=== PATIENT | female | born 1940 | race Caucasian/White ===

== ENCOUNTER 2020-04-07 16:27 | Inpatient (IN) | payer MEDICARE, MEDICAID, SELFPAY ==
[2020-04-07] VITALS (9 sets, daily range): BP systolic 109–170; BP diastolic 71–92; PULSE 85–110; RESP 14–33; TEMP 35.9–36.8; O2SAT 88–100; BMI 26.6
--- NOTE | 2020-04-07 17:27 | XRR_ITS ---
PROCEDURE INFORMATION: Exam: XR Chest, 1 View Exam date and time: 04/07/2020 5:44 PM Age: 80 years old Clinical indication: Dyspnea; Additional info: SOB TECHNIQUE: Imaging protocol: XR of the chest Views: 1 view. COMPARISON: CR Chest 1 [place] [id number] 04/15/2016 4:32 PM FINDINGS: Lungs: A somewhat lobulated approximately 3.1 cm right infrahilar masslike density. Right basilar atelectasis. Left lung is clear aside from mildly prominent interstitial markings. Pleural spaces: Moderate right pleural effusion. No pneumothorax. Heart/Mediastinum: Mild enlargement of the cardiac shadow. Bones/joints: No acute abnormality. XR/XR chest 1V portable [id number] IMPRESSION: 1. A somewhat lobulated approximately 3.1 cm right infrahilar density is new compared to the prior exam and is suspicious for mass. Recommend contrast-enhanced CT of the chest. 2. Moderate right pleural effusion and associated atelectasis.
--- NOTE | 2020-04-07 17:29 | ECG_ITS ---
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 Measurements Intervals [place] Rate: 103 P: [place]: QRS: -25 QRSD: 105 T: 33 QT: 359 QTc: 470 Interpretive Statements ATRIAL FIBRILLATION WITH RAPID VENTRICULAR RESPONSE WITH ABERRANT CONDUCTION OR VENTRICULAR PREMATURE COMPLEXES INCOMPLETE RIGHT BUNDLE BRANCH BLOCK [90+ ms QRS DURATION, TERMINAL R IN V1/V2, 40+ ms S IN I/aVL/V4/V5/V6] SEPTAL MYOCARDIAL INFARCTION , OF INDETERMINATE AGE [40+ ms Q WAVE IN V1/V2] Compared to ECG 04/15/2016 16:49:34 Ventricular premature complex(es) now present Aberrant conduction of supraventricular beat(s) now present Incomplete right bundle-branch block now present Myocardial infarct finding now present Sinus rhythm no longer present Left-axis deviation no longer present Electronically Signed On 04-08-2020 16:06:09 VALIDATION SCIENTIST by Alex Arguelles M.D. [id number]
[2020-04-07] MEDS: albuterol 8 gm MDI 4 PUFF INHALATION (18:04)
[2020-04-07 18:07] LABS: ABG PCO2 52.2 mmHg (35-45); ABG PH Result 7.43 (7.35-7.45); Arterial Blood Gas Hematocrit 28.2 % (37-47); Base Excess ABG 9.1 mmol/L (-2.0-2.0); Blood Gas Allen Test Pos; Blood Gas Sample Type Arterial; HCO3 ABG 34.7 mmol/L (22-26)
[2020-04-07 18:08] LABS: Blood Gas Sample Site Radial, right; Oxygen Device NC
[2020-04-07 18:30] LABS: Basophils # 0.1 10^3/uL (0.0-0.1); Eosinophils # 0.2 10^3/uL (0.0-0.8); Eosinophils % 2.6 %; Hematocrit 33.4 % (37.0-47.0); Lymphocytes # 1.1 10^3/uL (0.8-4.8); Lymphocytes % 14.5 %; Mean Corpuscular HGB Conc 26.9 g/dL (30.0-36.0); Mean Corpuscular Hemoglobin 22.8 pg (28.0-34.0); Mean Corpuscular Volume 84.6 fL (81-99); Mean Platelet Volume 10.2 fL (7.4-10.4); Monocytes # 0.8 10^3/uL (0.2-0.9); Monocytes % 10.3 %; Neutrophils % 71.3 %; Nucleated Red Blood Cells % 0 %; Platelet Count 273 10^3/cmm (130-400); Red Blood Count 3.95 10^6/uL (4.1-5.3); Red Cell Distribution Width 29.2 % (12.1-15.1); White Blood Count 7.3 10^3/uL (4.0-10.0)
--- NOTE | 2020-04-07 18:32 | CTR_ITS ---
PROCEDURE INFORMATION: Exam: CT Angiography Chest With Contrast Exam date and time: 04/07/2020 7:30 PM Age: 80 years old Clinical indication: Shortness of breath; Patient HX: C/O cp SOB w elev d-dimer; Additional info: SOB, cp TECHNIQUE: Imaging protocol: Computed tomographic angiography of the chest with contrast. 3D rendering (Not supervised by radiologist): MIP and/or 3D reconstructed images were created by the technologist. Radiation optimization: All CT scans at this facility use at least one of these dose optimization techniques: automated exposure control; mA and/or kV adjustment per patient size (includes targeted exams where dose is matched to clinical indication); or iterative reconstruction. Contrast material: OMNI 350; Contrast volume: 82 ml; Contrast route: INTRAVENOUS (IV); COMPARISON: CR (CHEST, ) 04/07/2020 5:50 PM RADIATION DOSE METRICS: Total DLP (mGy-cm): 580.93 FINDINGS: Pulmonary arteries: Mild enlargement of the pulmonary trunk is 3.4 cm. Aorta: Aortic annulus calcification. Several systemic vascular calcifications. No aneurysm. Veins: Reflux of contrast into the hepatic IVC. Lungs: Atelectasis of the right middle lobe and a majority of the right lower lobe. Trace left basilar atelectasis. No mass. Pleural spaces: Moderate right pleural effusion. No pneumothorax. Trace left pleural effusion. Heart: Cardiomegaly with focal enlargement of the right atrium. No pericardial effusion. Multiple coronary calcifications. Lymph nodes: Nonspecific mildly prominent mediastinal lymph nodes. Bones/joints: No acute fracture. Soft tissues: Anasarca noted. CT/CT angio chest PE protcl [id number] IMPRESSION: 1. The chest radiograph abnormality is a summation of prominent infrahilar pulmonary arteries and veins on the right and atelectasis. No mass is identified. 2. No pulmonary embolus. Mild enlargement of the pulmonary trunk which may reflect valvular disease or pulmonary hypertension. 3. Atelectasis of the majority of the right lower lobe and the right middle lobe with a moderate right pleural effusion. 4. Heart findings and anasarca suggest some degree of right heart failure. Several coronary artery calcifications also noted. Radiation Dose CTDIVOL = (mGy): DLP = 580.93 (mGy-cm)
[2020-04-07 18:40] LABS: Lactic Sepsis W/Reflex 1.3 mmol/L (0.5-2.2)
[2020-04-07 18:43] LABS: Troponin(5th) Baseline 21 ng/L (0-10)
[2020-04-07 18:46] LABS: D Dimer 2.41 ug/mIFEU (0-0.59)
[2020-04-07 18:50] LABS: NT Pro B Type Natriuretic Pept 4719 pg/mL (0-450); Procalcitonin 0.05 ng/mL (0-0.5)
[2020-04-07 19:04] LABS: Alanine Aminotransferase 10 U/L (0-33); Albumin Level 3.2 g/dL (3.5-5.2); Alkaline Phosphatase 91 IU/L (35-105); Anion Gap 9.1 (5-19); Aspartate Amino Transferase 13 U/L (0-32); Blood Urea Nitrogen 7 mg/dL (8-23); C Reactive Protein 16.5 mg/L (0.0-4.9); Calcium 8.4 mg/dL (8.5-10.5); Carbon Dioxide 33 mmol/L (22-29); Chloride 101 mmol/L (98-107); Globulin 3.4 g/dL (1.3-4.6); Glucose 105 mg/dL (65-115); Osmolality Calculated 288 mOsm/kg (285-295); Potassium 3.1 mmol/L (3.5-5.1); Sodium 140 mmol/L (136-145); Total Bilirubin 0.4 mg/dL (0.15-1.2); Total Protein 6.6 g/dL (6.6-8.7)
[2020-04-07 19:28] LABS: Influenza A by IFA Negative (Negative); Influenza B by IFA Negative (Negative); SARS Covid-2 Antigen Negative (Negative)
--- NOTE | 2020-04-07 19:29 | ECG_ITS ---
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 Measurements Intervals [place] Rate: 101 P: [place]: QRS: -28 QRSD: 86 T: 44 QT: 344 QTc: 448 Interpretive Statements ATRIAL FIBRILLATION WITH RAPID VENTRICULAR RESPONSE POSSIBLE RIGHT VENTRICULAR CONDUCTION DELAY [RSR (QR) IN V1/V2] SEPTAL MYOCARDIAL INFARCTION , OF INDETERMINATE AGE [40+ ms Q WAVE IN V1/V2] Compared to ECG 04/07/2020 17:41:18 Ventricular premature complex(es) no longer present Aberrant conduction of supraventricular beat(s) no longer present Incomplete right bundle-branch block no longer present Myocardial infarct finding still present Electronically Signed On 04-08-2020 16:07:40 LANGUAGE SPECIALIST by Alex Arguelles M.D. [id number]
[2020-04-07] MEDS: iohexol 350 mg/mL 100 mL Btl IV (19:51)
[2020-04-07] MEDS: FUROsemide 10 mg/mL SDV 4mL 40 MG IVP (20:56)
[2020-04-07] MEDS: cefTRIAXone 1,000 MG in sodium chloride 0.9% (plus) 50 ML 100 MG IV (20:56)
[2020-04-07 21:07] LABS: Troponin 5 2HR 21.39 ng/L (0-10); Troponin 5 2HR Delta 0.39 ABS# (0-10)
--- NOTE | 2020-04-07 22:23 | P.HP_ITS ---
Providers/Chief Complaint Admitting Physician: Diana Buenrostro MD Primary Care Provider: Unknown Chief Complaint: crackling in lower lobe History of Present Illness Yo Willoughby is a 80 year old female who presented to the emergency room with complaint of being short of breath. Symptoms have been going on for several days. She is not able to provide me much in the way of history due to dementia. Family was not available to provide information this evening. Emergency room r ecords reveal that she has a history of CHF. She has required thoracentesis in the past and this was evidently done at [facility]. She does have oxygen at home if needed but rarely uses. In the emergency room she was requiring 5 L by nasal cannula. Work-up revealed a right-sided effusion. She was also having sinus tachycardia. Shortness of breath is worse with exertion and lying flat. She feels best lying on her right side. No report of any fever. She denies chest pain. Review of Systems General: Reports: ROS unobtainable due to mental status (She genuinely does not remember beyond being short of breath) Medications/Allergies Home Medications Medication Instructions Recorded Confirmed Last Taken Type apixaban 5 mg PO BID 04/08/20 04/08/20 04/07/20 17:00 History carvedilol [Coreg] 3.125 mg PO BID 04/08/20 04/08/20 04/07/20 17:00 History ferrous sulfate [Iron (ferrous 325 mg PO TID 04/08/20 04/08/20 04/07/20 17:00 History sulfate)] furosemide [Lasix] 40 mg PO BID 04/08/20 04/08/20 04/07/20 08:00 History lisinopril 5 mg PO DAILY 04/08/20 04/08/20 04/07/20 09:00 History metoprolol tartrate 25 mg PO BID 04/08/20 04/08/20 04/07/20 17:00 History pantoprazole 40 mg PO DAILY 04/08/20 04/08/20 04/07/20 07:00 History Allergies Allergy/AdvReac Type Severity Reaction Status Date / Time No Known Allergies Allergy Verified 04/07/20 16:44 PFSH Acute PFSH: Medical History (Updated 04/08/20 @ 08:20 by Diana Buenrostro MD) Atrial fibrillation CHF (congestive heart failure) Dementia Hypertension Iron deficiency anemia Surgical History (Updated 04/08/20 @ 06:38 by Diana Buenrostro MD) History of thoracentesis Social History (Updated 04/08/20 @ 06:39 by Diana Buenrostro MD) Household members: family Marital status: / Female Reproductive History: Other female reproductive history: has had at least one child Supplemental PFSH Information: not able to obtain family history due to cognitive status Vitals/I&O/Wt Last Vital Signs Temp 98.3 F 04/07/20 16:45 Pulse 106 H 04/07/20 21:02 Resp 33 H 04/07/20 21:02 BP 158/92 04/07/20 21:02 Pulse Ox 97 04/07/20 21:02 Weight last 48 hrs Weight 74.843 kg Data : 04/07/20 18:15 04/08/20 07:24 Other Labs: Laboratory Last Values WBC 7.3 10^3/uL (4.0-10.0) 04/07/20 18:15 RBC 3.95 10^6/uL (4.1-5.3) L 04/07/20 18:15 Hgb 9.0 g/dL (11.5-15.3) L 04/07/20 18:15 Hct 33.4 % (37.0-47.0) L 04/07/20 18:15 MCV 84.6 fL (81-99) 04/07/20 18:15 MCH 22.8 pg (28.0-34.0) L 04/07/20 18:15 MCHC 26.9 g/dL (30.0-36.0) L 04/07/20 18:15 RDW 29.2 % (12.1-15.1) H 04/07/20 18:15 Plt Count 273 10^3/cmm (130-400) 04/07/20 18:15 MPV 10.2 fL (7.4-10.4) 04/07/20 18:15 Neut % (Auto) 71.3 % 04/07/20 18:15 Lymph % (Auto) 14.5 % 04/07/20 18:15 Izard % (Auto) 10.3 % 04/07/20 18:15 Eos % (Auto) 2.6 % 04/07/20 18:15 Baso % (Auto) 1.0 % 04/07/20 18:15 Neut # (Auto) 5.20 10^3/uL (1.8-7.7) 04/07/20 18:15 Lymph # (Auto) 1.1 10^3/uL (0.8-4.8) 04/07/20 18:15 Izard # (Auto) 0.8 10^3/uL (0.2-0.9) 04/07/20 18:15 Eos # (Auto) 0.2 10^3/uL (0.0-0.8) 04/07/20 18:15 Baso # (Auto) 0.1 10^3/uL (0.0-0.1) 04/07/20 18:15 Nucleated RBC % (auto) 0 % 04/07/20 18:15 Nucleated RBCs # 0.0 /100WBC 04/07/20 18:15 D-Dimer 2.41 ug/mIFEU (0-0.59) H 04/07/20 18:15 Sodium 140 mmol/L (136-145) 04/07/20 18:15 Potassium 3.1 mmol/L (3.5-5.1) L 04/07/20 18:15 Chloride 101 mmol/L (98-107) 04/07/20 18:15 Carbon Dioxide 33 mmol/L (22-29) H 04/07/20 18:15 Anion Gap 9.1 (5-19) 04/07/20 18:15 BUN 7 mg/dL (8-23) L 04/07/20 18:15 Creatinine 0.5 mg/dL (0.5-0.9) 04/07/20 18:15 GFR Calculation Not Reportable 04/07/20 18:15 Glucose 105 mg/dL (65-115) 04/07/20 18:15 Calculated Osmolality 288 mOsm/kg (285-295) 04/07/20 18:15 Lactic Acid 1.3 mmol/L (0.5-2.2) 04/07/20 18:15 Calcium 8.4 mg/dL (8.5-10.5) L 04/07/20 18:15 Total Bilirubin 0.4 mg/dL (0.15-1.2) 04/07/20 18:15 AST 13 U/L (0-32) 04/07/20 18:15 ALT 10 U/L (0-33) 04/07/20 18:15 Alkaline Phosphatase 91 IU/L (35-105) 04/07/20 18:15 Troponin T Baseline 21 ng/L (0-10) H 04/07/20 18:15 Troponin T 120 Minute 21.39 ng/L (0-10) H 04/07/20 20:32 Delta Troponin T 0.39 ABS# (0-10) 04/07/20 20:32 C-Reactive Protein 16.5 mg/L (0.0-4.9) H 04/07/20 18:15 NT-Pro-B Natriuret Pep 4719 pg/mL (0-450) H 04/07/20 18:15 Total Protein 6.6 g/dL (6.6-8.7) 04/07/20 18:15 Albumin 3.2 g/dL (3.5-5.2) L 04/07/20 18:15 Globulin 3.4 g/dL (1.3-4.6) 04/07/20 18:15 Procalcitonin 0.05 ng/mL (0-0.5) 04/07/20 18:15 Influenza Type A Ag Negative (Negative) 04/07/20 18:30 Influenza Type B Ag Negative (Negative) 04/07/20 18:30 SARS-CoV-2 Ag (Rapid) Negative (Negative) 04/07/20 18:30 CXR: Radiologist's impression: FINDINGS: Lungs: A somewhat lobulated approximately 3.1 cm right infrahilar masslike density. Right basilar atelectasis. Left lung is clear aside from mildly prominent interstitial markings. Pleural spaces: Moderate right pleural effusion. No pneumothorax. Heart/Mediastinum: Mild enlargement of the cardiac shadow. Bones/joints: No acute abnormality. XR/XR chest 1V portable [id number] IMPRESSION: 1. A somewhat lobulated approximately 3.1 cm right infrahilar density is new compared to the prior exam and is suspicious for mass. Recommend contrast-enhanced CT of the chest. 2. Moderate right pleural effusion and associated atelectasis. CTA Chest: Radiologist's impression: FINDINGS: Pulmonary arteries: Mild enlargement of the pulmonary trunk is 3.4 cm. Aorta: Aortic annulus calcification. Several systemic vascular calcifications. No aneurysm. Veins: Reflux of contrast into the hepatic IVC. Lungs: Atelectasis of the right middle lobe and a majority of the right lower lobe. Trace left basilar atelectasis. No mass. Pleural spaces: Moderate right pleural effusion. No pneumothorax. Trace left pleural effusion. Heart: Cardiomegaly with focal enlargement of the right atrium. No pericardial effusion. Multiple coronary calcifications. Lymph nodes: Nonspecific mildly prominent mediastinal lymph nodes. Bones/joints: No acute fracture. Soft tissues: Anasarca noted. CT/CT angio chest PE protcl [id number] IMPRESSION: 1. The chest radiograph abnormality is a summation of prominent infrahilar pulmonary arteries and veins on the right and atelectasis. No mass is identified. 2. No pulmonary embolus. Mild enlargement of the pulmonary trunk which may reflect valvular disease or pulmonary hypertension. 3. Atelectasis of the majority of the right lower lobe and the right middle lobe with a moderate right pleural effusion. 4. Heart findings and anasarca suggest some degree of right heart failure. Several coronary artery calcifications also noted. 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 Qualified Code(s): I50.9 - Heart failure, unspecified (3) Hypertension: Status: Chronic Qualifiers: Hypertension type: unspecified Qualified Code(s): I10 - Essential (primary) hypertension (4) Atrial fibrillation: Status: Chronic Qualifiers: Atrial fibrillation type: unspecified chronic Qualified Code(s): I48.20 - Chronic atrial fibrillation, unspecified (5) Chronic anticoagulation: eliquis Status: Chronic (6) Iron deficiency anemia: Status: Chronic Qualifiers: Iron deficiency anemia type: unspecified iron deficiency Qualified Code(s): D50.9 - Iron deficiency anemia, unspecified (7) Dementia: Status: Chronic Qualifiers: Dementia type: unspecified type Dementia behavioral disturbance: without behavioral disturbance Qualified Code(s): F03.90 - Unspecified dementia without behavioral disturbance Additional A&P Information Inpatient admission IV diuresis Strict I's and O's and daily weights Chaudhari catheter for monitoring of urine output Hold Eliquis in anticipation of possible need for thoracentesis Echocardiogram limited to check ejection fraction Medical records have been requested from [facility] Continue home carvedilol Telemetry monitoring I have not continued home metoprolol. Review of external medication records indicates that she has been prescribed 2 different beta-blockade by 2 different people. The carvedilol was the most recently prescribed and the one that has been prescribed for the longest period of time. Metoprolol just shows 1 prescription prior to the last prescription for the carvedilol. Can get clarification from family or provider. Continue home lisinopril, iron sulfate and Protonix Need to clarify with family history and events leading to hospital stay when available SCDs Pharmacological prophylaxis until discern if she will need thoracentesis Follow-up pending Covid testing done in anticipation of possible procedure Fall precautions Supportive care otherwise Full code as I am not able to discern otherwise currently. Attestations Medical Necessity Statement*: Anticipated stay greater than 2 midnights in a patient requiring 5 L of oxygen found to have right pleural effusion. Plans are as noted above. 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
--- NOTE | 2020-04-07 22:27 | ED_ITS ---
HPI - SOB/Dyspnea General: Chief Complaint: Shortness of Breath/Dyspnea Stated Complaint: crackling in lower lobe Time Seen by Provider: 04/07/20 16:53 Source: patient and family ([id number]) Mode of arrival: ambulatory Limitations: other (dementia) History of Present Illness: HPI Narrative: Patient is a 80-year-old female with a history of dementia who presents to the emergency department with shortness of breath. Patient's [id number] gives most of the history and she states that when she saw the patient today the patient was having trouble breathing and was feeling unwell. She has a history of congestive heart failure and pleural effusion and recently required thoracocentesis done at [facility]. She has had thoracocentesis done twice now. Patient is on intermittent as needed oxygen at home but has required more oxygen today. She denies any fever or sick contacts. MD elicited complaint: shortness of breath Pertinent past history: congestive heart failure Context: recent illness Timing: constant Severity: moderate Exacerbating factors: lying flat Relieving factors: oxygen Known history of: congestive heart failure Associated symptoms: Reports orthopnea; Deny abdominal pain, chest congestion, chest pain, cough, diaphoresis, dizziness, extremity pain, fever(s), hemoptysis, lightheadedness, myalgias, nausea, palpitations, paresthesias, polydipsia, polyuria, rash, sense of impending doom, syncope or vomiting Treatment prior to arrival: oxygen Review of Systems General: Reports: 10 or more systems reviewed and unremarkable except in HPI and below Const: Denies: fever(s) or diaphoresis Eyes: Denies: change in vision or blurry vision ENMT: Denies: throat pain, enlarged tonsils, odynophagia, hoarseness, mouth pain or swelling of lips/tongue Card: Reports: orthopnea; Denies: chest pain, palpitations, lightheadedness or syncope Resp: Denies: hemoptysis or chest congestion GI: Denies: abdominal pain, nausea or vomiting : Denies: flank pain, difficulty voiding, dysuria, urinary frequency, urinary urgency or urinary hesitancy Musc: Denies: extremity pain Skin/Breast: Denies: rash, pruritus or erythema Neuro: Denies: dizziness Endo: Denies: polyuria or polydipsia PFS ED PFSH: Medical History (Reviewed 04/07/20 @ 23:04 by Jorge Lopez MD, [facility] [place]) CHF (congestive heart failure) Hypertension Physical Exam Const: COMMON NORMALS: no acute distress, average body habitus, patient oriented x3, no limitations, healthy appearing, alert and well nourished HENMT: COMMON NORMALS: normocephalic, atraumatic and moist oral mucous membranes HEAD & SCALP: normocephalic and atraumatic Neck/C-Spine: COMMON NORMALS: no meningeal signs and no JVD Chest: COMMONS NORMALS: normal inspection of the chest and normal palpation of entire chest wall Resp: COMMON NORMALS: normal respiratory effort, No retractions, No use of accessory muscles and percussion normal EFFORT & INSPECTION: Yes labored AUSCULTATION: rales and diminished lung sounds PERCUSSION: percussion normal Cardio: COMMON NORMALS: no JVD, regular rate, regular rhythm, S1 normal heart sound present, S2 normal heart sound present, No gallops present (Cardio), No clicks present (Cardio), No murmurs present (Cardio), No rub (Cardio) and Peripheral pulses 2+ throughout RATE: regular rate RHYTHM: regular rhythm HEART SOUNDS: S1 normal heart sound present and S2 normal heart sound present PERIPHERAL PULSES: Peripheral pulses 2+ throughout GI: COMMON NORMALS: Normal to inspection, nondistended, normoactive bowel sounds present, Soft to palpation, non-tender, No hepatosplenomegaly present, no masses and no bruits PALPATION: Yes Soft to palpation and Yes No hepatosplenomegaly present Extremity: COMMON NORMALS: normal to inspection, full ROM, capillary refill normal, no calf tenderness and no pedal edema Neuro: COMMON NORMALS: patient oriented x3 SENSORIUM/ORIENTATION: Yes alert MENINGEAL SIGNS: Yes no meningeal signs Skin: COMMON NORMALS: no rashes or lesions noted, no wounds, turgor normal, no jaundice, no petechiae and no mottling GENERAL SKIN EXAM: no rashes or lesions noted and turgor normal Course Reevaluation(s): Reevaluation #1: Discussed her lab and imaging findings with the patient and her [id number]. She appears to be in CHF exacerbation and also has a significant right pleural effusion. Advised that she will need hospital admission and possible thoracocentesis if she does not obtain significant improvement. They voiced understanding and are in agreement with the plan. Time: 20:10 Consultations: Consultation #1: Discussed the patient with Dr. Buenrostro, hospitalist and she kindly accepted patient to her service Time: 20:17 Vital Signs: Vital signs: Vital Signs Temperature 98.3 F 04/07/20 16:45 Pulse Rate 106 H 04/07/20 21:02 Respiratory Rate 33 H 04/07/20 21:02 Blood Pressure 158/92 04/07/20 21:02 Pulse Oximetry 97 04/07/20 21:02 MDM - SOB/Dyspnea MDM Narrative: Medical decision making narrative: 80-year-old female patient with shortness of breath secondary to CHF exacerbation and pleural effusion. She was hypoxic requiring 5 L of oxygen via nasal cannula to maintain oxygen sa turations. She is being admitted to the hospital for further evaluation and management. She was given a dose of intravenous furosemide in the emergency department Medical Records: Attestation: I reviewed the patient's medical records. Lab Data: Attestation: I reviewed the patient's lab results. Labs: Lab Results 04/07/20 04/07/20 04/07/20 Range/Units 18:15 18:15 18:15 WBC 7.3 (4.0-10.0) 10^3/ uL RBC 3.95 L (4.1-5.3) 10^6/u L Hgb 9.0 L (11.5-15.3) g/dL Hct 33.4 L (37.0-47.0) % MCV 84.6 (81-99) fL MCH 22.8 L (28.0-34.0) pg MCHC 26.9 L (30.0-36.0) g/dL RDW 29.2 H (12.1-15.1) % Plt Count 273 (130-400) 10^3/c mm MPV 10.2 (7.4-10.4) fL Neut % (Auto) 71.3 % Lymph % (Auto) 14.5 % [place] % (Auto) 10.3 % Eos % (Auto) 2.6 % Baso % (Auto) 1.0 % Neut # (Auto) 5.20 (1.8-7.7) 10^3/u L Lymph # (Auto) 1.1 (0.8-4.8) 10^3/u L [place] # (Auto) 0.8 (0.2-0.9) 10^3/u L Eos # (Auto) 0.2 (0.0-0.8) 10^3/u L Baso # (Auto) 0.1 (0.0-0.1) 10^3/u L Nucleated RBC % (a uto) 0 % Nucleated RBCs # 0.0 /100WBC D-Dimer 2.41 H (0-0.59) ug/mIFE U Sodium 140 (136-145) mmol/L Potassium 3.1 L (3.5-5.1) mmol/L Chloride 101 (98-107) mmol/L Carbon Dioxide 33 H (22-29) mmol/L Anion Gap 9.1 (5-19) BUN 7 L (8-23) mg/dL Creatinine 0.5 (0.5-0.9) mg/dL GFR Calculation Not Reportable Glucose 105 (65-115) mg/dL Calculated Osmolal ity 288 (285-295) mOsm/k g Lactic Acid (0.5-2.2) mmol/L Calcium 8.4 L (8.5-10.5) mg/dL Total Bilirubin 0.4 (0.15-1.2) mg/dL AST 13 (0-32) U/L ALT 10 (0-33) U/L Alkaline Phosphata se 91 (35-105) IU/L Troponin T Baselin e (0-10) ng/L Troponin T 120 Min [place] (0-10) ng/L Delta Troponin T (0-10) ABS# C-Reactive Protein 16.5 H (0.0-4.9) mg/L NT-Pro-B Natriuret Pep 4719 H (0-450) pg/mL Total Protein 6.6 (6.6-8.7) g/dL Albumin 3.2 L (3.5-5.2) g/dL Globulin 3.4 (1.3-4.6) g/dL Procalcitonin 0.05 (0-0.5) ng/mL Influenza Type A A g (Negative) Influenza Type B A g (Negative) SARS-CoV-2 Ag (Rap id) (Negative) 04/07/20 04/07/20 04/07/20 Range/Units 18:15 18:15 18:30 WBC (4.0-10.0) 10^3/ uL RBC (4.1-5.3) 10^6/u L Hgb (11.5-15.3) g/dL Hct (37.0-47.0) % MCV (81-99) fL MCH (28.0-34.0) pg MCHC (30.0-36.0) g/dL RDW (12.1-15.1) % Plt Count (130-400) 10^3/c mm MPV (7.4-10.4) fL Neut % (Auto) % Lymph % (Auto) % [place] % (Auto) % Eos % (Auto) % Baso % (Auto) % Neut # (Auto) (1.8-7.7) 10^3/u L Lymph # (Auto) (0.8-4.8) 10^3/u L [place] # (Auto) (0.2-0.9) 10^3/u L Eos # (Auto) (0.0-0.8) 10^3/u L Baso # (Auto) (0.0-0.1) 10^3/u L Nucleated RBC % (a uto) % Nucleated RBCs # /100WBC D-Dimer (0-0.59) ug/mIFE U Sodium (136-145) mmol/L Potassium (3.5-5.1) mmol/L Chloride (98-107) mmol/L Carbon Dioxide (22-29) mmol/L Anion Gap (5-19) BUN (8-23) mg/dL Creatinine (0.5-0.9) mg/dL GFR Calculation Glucose (65-115) mg/dL Calculated Osmolal ity (285-295) mOsm/k g Lactic Acid 1.3 (0.5-2.2) mmol/L Calcium (8.5-10.5) mg/dL Total Bilirubin (0.15-1.2) mg/dL AST (0-32) U/L ALT (0-33) U/L Alkaline Phosphata se (35-105) IU/L Troponin T Baselin e 21 H (0-10) ng/L Troponin T 120 Min [place] (0-10) ng/L Delta Troponin T (0-10) ABS# C-Reactive Protein (0.0-4.9) mg/L NT-Pro-B Natriuret Pep (0-450) pg/mL Total Protein (6.6-8.7) g/dL Albumin (3.5-5.2) g/dL Globulin (1.3-4.6) g/dL Procalcitonin (0-0.5) ng/mL Influenza Type A A g Negative (Negative) Influenza Type B A g Negative (Negative) SARS-CoV-2 Ag (Rap id) (Negative) 04/07/20 04/07/20 Range/Units 18:30 20:32 WBC (4.0-10.0) 10^3/ uL RBC (4.1-5.3) 10^6/u L Hgb (11.5-15.3) g/dL Hct (37.0-47.0) % MCV (81-99) fL MCH (28.0-34.0) pg MCHC (30.0-36.0) g/dL RDW (12.1-15.1) % Plt Count (130-400) 10^3/c mm MPV (7.4-10.4) fL Neut % (Auto) % Lymph % (Auto) % [place] % (Auto) % Eos % (Auto) % Baso % (Auto) % Neut # (Auto) (1.8-7.7) 10^3/u L Lymph # (Auto) (0.8-4.8) 10^3/u L [place] # (Auto) (0.2-0.9) 10^3/u L Eos # (Auto) (0.0-0.8) 10^3/u L Baso # (Auto) (0.0-0.1) 10^3/u L Nucleated RBC % (a uto) % Nucleated RBCs # /100WBC D-Dimer (0-0.59) ug/mIFE U Sodium (136-145) mmol/L Potassium (3.5-5.1) mmol/L Chloride (98-107) mmol/L Carbon Dioxide (22-29) mmol/L Anion Gap (5-19) BUN (8-23) mg/dL Creatinine (0.5-0.9) mg/dL GFR Calculation Glucose (65-115) mg/dL Calculated Osmolal ity (285-295) mOsm/k g Lactic Acid (0.5-2.2) mmol/L Calcium (8.5-10.5) mg/dL Total Bilirubin (0.15-1.2) mg/dL AST (0-32) U/L ALT (0-33) U/L Alkaline Phosphata se (35-105) IU/L Troponin T Baselin e (0-10) ng/L Troponin T 120 Min [place] 21.39 H (0-10) ng/L Delta Troponin T 0.39 (0-10) ABS# C-Reactive Protein (0.0-4.9) mg/L NT-Pro-B Natriuret Pep (0-450) pg/mL Total Protein (6.6-8.7) g/dL Albumin (3.5-5.2) g/dL Globulin (1.3-4.6) g/dL Procalcitonin (0-0.5) ng/mL Influenza Type A A g (Negative) Influenza Type B A g (Negative) SARS-CoV-2 Ag (Rap id) Negative (Negative) Imaging Data^: CTA Chest: Attestation: I personally reviewed and interpreted this imaging study as follows: Radiologist's impression: [place] [address] CT Scan Report Signed Patient: Estiven Willoughby #: [id number] : 3Acct#:[id number] Age/Sex: 80 / FADM Date: 04/07/20 Loc: ERRoom/Bed: Attending Dr: Ordering Provider/Ordering MD: Jorge Lopez MD, [facility] [place] Date of Service: 04/07/20 Procedure(s): CT angio chest PE protcl [id number] Accession Number(s): [id number] Report Number: [id number] PROCEDURE INFORMATION: Exam: CT Angiography Chest With Contrast Exam date and time: 04/07/2020 7:30 PM Age: 80 years old Clinical indication: Shortness of breath; Patient HX: C/O cp SOB w elev d-dimer; Additional info: SOB, cp TECHNIQUE: Imaging protocol: Computed tomographic angiography of the chest with contrast. 3D rendering (Not supervised by radiologist): MIP and/or 3D reconstructed images were created by the technologist. Radiation optimization: All CT scans at this facility use at least one of these dose optimization techniques: automated exposure control; mA and/or kV adjustment per patient size (includes targeted exams where dose is matched to clinical indication); or iterative reconstruction. Contrast material: OMNI 350; Contrast volume: 82 ml; Contrast route: INTRAVENOUS (IV); COMPARISON: CR (CHEST, ) 04/07/2020 5:50 PM RADIATION DOSE METRICS: Total DLP (mGy-cm): 580.93 FINDINGS: Pulmonary arteries: Mild enlargement of the pulmonary trunk is 3.4 cm. Aorta: Aortic annulus calcification. Several systemic vascular calcifications. No aneurysm. Veins: Reflux of contrast into the hepatic IVC. Lungs: Atelectasis of the right middle lobe and a majority of the right lower lobe. Trace left basilar atelectasis. No mass. Pleural spaces: Moderate right pleural effusion. No pneumothorax. Trace left pleural effusion. Heart: Cardiomegaly with focal enlargement of the right atrium. No pericardial effusion. Multiple coronary calcifications. Lymph nodes: Nonspecific mildly prominent mediastinal lymph nodes. Bones/joints: No acute fracture. Soft tissues: Anasarca noted. CT/CT angio chest PE protcl [id number] IMPRESSION: 1. The chest radiograph abnormality is a summation of prominent infrahilar pulmonary arteries and veins on the right and atelectasis. No mass is identified. 2. No pulmonary embolus. Mild enlargement of the pulmonary trunk which may reflect valvular disease or pulmonary hypertension. 3. Atelectasis of the majority of the right lower lobe and the right middle lobe with a moderate right pleural effusion. 4. Heart findings and anasarca suggest some degree of right heart failure. Several coronary artery calcifications also noted. Radiation Dose CTDIVOL = (mGy): DLP = 580.93 (mGy-cm) Dictated By:Fredy Strong Signed By:Flynn Strong Date/Time:04/07/202007 DD/ 07 CXR: Attestation: I personally reviewed and interpreted this imaging study as follows: Radiologist's impression: [employer] [address] XRay Report Signed with Jonatan Patient: Estiven Willoughby #: [id number] : 1940cct#:[id number] Age/Sex: 80 / FADM Date: 04/07/20 Loc: ERRoom/Bed: Attending Dr: Ordering Provider/Ordering MD: Jorge Lopez MD, [facility] [place] Date of Service: 04/07/20 Procedure(s): XR chest 1V portable [id number] Accession Number(s): [id number] Report Number: [id number] ADDENDUM XR/XR chest 1V portable [id number] THIS REPORT CONTAINS FINDINGS THAT MAY BE CRITICAL TO PATIENT CARE. The findings were verbally communicated via telephone conference with JORGE LOPEZ at 7:24 PM TRAVELER CHANGER on 04/07/2020. The findings were acknowledged and understood. Addendum Dictated By: Fredy Strong Addendum Signed By: Flynn Strong Date/Time:04/07/201924 Addendum Cosigned By: PROCEDURE INFORMATION: Exam: XR Chest, 1 View Exam date and time: 04/07/2020 5:44 PM Age: 80 years old Clinical indication: Dyspnea; Additional info: SOB TECHNIQUE: Imaging protocol: XR of the chest Views: 1 view. COMPARISON: CR Chest 1 [place] [id number] 04/15/2016 4:32 PM FINDINGS: Lungs: A somewhat lobulated approximately 3.1 cm right infrahilar masslike density. Right basilar atelectasis. Left lung is clear aside from mildly prominent interstitial markings. Pleural spaces: Moderate right pleural effusion. No pneumothorax. Heart/Mediastinum: Mild enlargement of the cardiac shadow. Bones/joints: No acute abnormality. XR/XR chest 1V portable [id number] IMPRESSION: 1. A somewhat lobulated approximately 3.1 cm right infrahilar density is new compared to the prior exam and is suspicious for mass. Recommend contrast-enhanced CT of the chest. 2. Moderate right pleural effusion and associated atelectasis. Dictated By:Fredy Strong Signed By:Flynn Strong Date/Time:04/07/201922 DD/ 21 EKG Data^: EKG 1: Attestation: I personally reviewed and interpreted this EKG as follows: EKG Interpretation Date: 04/07/20 EKG interpretation time: 19:30 Prior EKG tracings: not available for review Interpretation: Atrial fibrillation with RVR. Heart rate [address] changes. EKG 2: Attestation: I personally reviewed and interpreted this EKG as follows: EKG Interpretation Date: 04/07/20 EKG interpretation time: 17:41 Prior EKG tracings: available for review Interpretation: Atrial fibrillation with RVR. Heart rate 103 bpm. Incomplete right bundle branch block. No ST changes. 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
--- NOTE | 2020-04-07 23:29 | ECG_ITS ---
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 Measurements Intervals [place] Rate: 106 P: MN: QRS: -22 QRSD: 90 T: 24 QT: 348 QTc: 463 Interpretive Statements ATRIAL FIBRILLATION WITH RAPID VENTRICULAR RESPONSE WITH ABERRANT CONDUCTION OR VENTRICULAR PREMATURE COMPLEXES BORDERLINE LEFT AXIS DEVIATION [QRS AXIS < -20] POSSIBLE RIGHT VENTRICULAR CONDUCTION DELAY [RSR (QR) IN V1/V2] MINIMAL ST DEPRESSION [0.025+ mV ST DEPRESSION] ABNORMAL RHYTHM ECG INTERPRETATION BASED ON A DEFAULT AGE OF 40 YEARS Compared to ECG 04/07/2020 19:30:45 Aberrant conduction of supraventricular beat(s) now present Ventricular premature complex(es) now present ST (T wave) deviation now present Myocardial infarct finding no longer present Electronically Signed On 04-08-2020 16:10:56 EDUCATIONAL ADVISOR by Alex Arguelles M.D. [id number]
[2020-04-08] VITALS (11 sets, daily range): BP systolic 127–155; BP diastolic 74–103; PULSE 80–128; RESP 20–37; TEMP 36.1–37.2; O2SAT 94–99
--- NOTE | 2020-04-08 03:13 | PC.NURSE ---
Patient admitted to unit via ED personel on [facility]. Patient A&Ox2 person and place. Patient pleasant and cooperative. Lungs diminished with fine crackles in the bases and expiratory wheezes noted in the upper airways. Patient unable to tell this medical writer about medications. Daughter called and got updated list of home medications. Patient has no skin issues noted at this time. Patient walking to bathroom with one standby assist. Patient on precautions for send out results to [employer] laboratory. Patient laid and rested for the first part of the night however at this time patient more confused and wandered out in the [facility] for help. Patient alert to self only at this time. Bed alarm and pressure pad alarm applied to patient at this time. Will continue to monitor and assist as needed following CPOC.
--- NOTE | 2020-04-08 06:50 | USCV_ITS ---
Yo Willoughby Age: 80 Gender: F : 1940 Exam Date: 04/08/2020 07:14 Ordering Phys: Diana Buenrostro MD Technologist: Jihan Nelson [place] [facility] [place] CHF SOB BP: 131 / 96 HR: 134 Rhythm: Other Technical Quality: Adequate MEASUREMENTS (Male / Female) Normal Values 2D ECHO LV Diastolic Diameter PLAX 4.3 cm 4.2 - 5.9 / 3.9 - 5.3 cm LV Systolic Diameter PLAX 3.0 cm LV Chamber Size 4.0 cm IVS Diastolic Thickness 1.0 cm 0.6 - 1.0 / 0.6 - 0.9 cm IVS Systolic Thickness 1.2 cm LVPW Diastolic Thickness 1.4 cm 0.6 - 1.0 / 0.6 - 0.9 cm LVPW Systolic Thickness 1.7 cm RV Chamber Size 3.5 cm LVOT Diameter 2.0 cm LV Ejection Fraction 2D Teich 58.0 % LV Ejection Fraction MOD 2C 41.4 % LV Ejection Fraction 2C AL 39.0 % LA Diameter 6.2 cm LA Width 4.0 cm LA Height 5.3 cm RA Width 3.5 cm RA Height 5.2 cm Aorta at Sinotubular Diameter 2.5 cm M-MODE LV Diastolic Diameter MM 4.7 cm 4.2 - 5.9 / 3.9 - 5.3 cm LV Systolic Diameter MM 3.1 cm LV Ejection Fraction MM Teich 64.8 % IVS Diastolic Thickness MM 0.9 cm 0.6 - 1.0 / 0.6 - 0.9 cm IVS Systolic Thickness MM 1.4 cm LVPW Diastolic Thickness MM 1.4 cm 0.6 - 1.0 / 0.6 - 0.9 cm LVPW Systolic Thickness MM 1.5 cm RV Diastolic Diameter MM 2.9 cm Aortic Annulus Diameter 2.9 cm LA Ao Ratio MM 2.2 MV E Point Septal Separation 0.3 cm DOPPLER AV Peak Velocity 109.0 cm/s LVOT Peak Velocity 78.0 cm/s AV Area Cont Eq vti 2.7 cm squared AV Area Cont Eq pk 2.4 cm squared MV Area PHT 5.0 cm squared MV E' Velocity 53.0 cm/s Mitral E to MV E' Ratio 8.3 Mitral E to LV E' Lateral Ratio 8.5 Mitral E to LV E' Septal Ratio 8.1 TR Peak Velocity 335.2 cm/s TR Peak Gradient 44.9 mmHg TR Mean Velocity 239.9 cm/s TR Mean Gradient 26.0 mmHg TR Velocity Time Integral 114.7 cm TV Peak E Velocity 74.0 cm/s Right Atrial Pressure 15.0 mmHg Pulmonary Artery Systolic Pressu 59.9 mmHg PV Peak Velocity 60.0 cm/s RV Acceleration Time 0.2 s RV Ejection Time 0.3 s RV AcT/ET 0.5 FINDINGS Left Ventricle Normal left ventricular cavity size. Normal left ventricular systolic function. Left ventricular ejection fraction is estimated at 60 %. No regional wall motion abnormalities. Right Ventricle Probably normal right ventricular size and low normal systolic function. Right ventricular systolic pressure 57 mmHg. Right Atrium Mildly increased right atrial size. Right atrial pressure estimated at 15 mmHg. Left Atrium Left atrium not well visualized. Mitral Valve Mild mitral annular calcification. No mitral valve stenosis. Mild mitral valve regurgitation. Aortic Valve Aortic valve not well visualized. No aortic valve stenosis. Tricuspid Valve Structurally normal tricuspid valve. No tricuspid valve stenosis. Mild tricuspid valve regurgitation. Pulmonic Valve Pulmonic valve not well visualized. Pericardium No pericardial effusion. Right pleural effusion. Aorta Normal-sized aortic root. Dilated inferior vena cava with decreased respiratory variation. CONCLUSIONS 1. Normal left ventricular cavity size and systolic function. Left ventricular ejection fraction is estimated at 60 %. No regional wall motion abnormalities. 2. Probably normal right ventricular size and low normal systolic function. 3. Moderate pulmonary hypertension with pulmonary artery pressure estimated at 57 mmHg. 4. Mild mitral and tricuspid valve regurgitation. 5. Right atrial pressure estimated at 15 mmHg. 6. When compared to previous echocardiogram dated 04/16/2016, mitral valve regurgitation may have decreased somewhat. Fanny Chandler MD (Electronically Signed) Final Date: 08 April 2020 13:15 S
[2020-04-08] MEDS: carvedilol 3.125 mg Tablet PO ×2 (07:13→18:10)
[2020-04-08] MEDS: metoprolol tartrate 1 mg/1 mL SDV 5 mL 2.5 MG IV (07:13)
[2020-04-08] MEDS: FUROsemide 10 mg/mL SDV 4mL 40 MG IVP ×2 (07:13→18:10)
[2020-04-08 07:56] LABS: INR 1.25 (0.8-1.2)
[2020-04-08 07:57] LABS: Partial Thromboplastin Time 38.7 SECONDS (23.9-36.7)
[2020-04-08 08:02] LABS: Anion Gap 13.5 (5-19); Blood Urea Nitrogen 7 mg/dL (8-23); Calcium 9.5 mg/dL (8.5-10.5); Carbon Dioxide 33 mmol/L (22-29); Chloride 102 mmol/L (98-107); Glucose 112 mg/dL (65-115); Magnesium 1.9 mg/dL (1.7-2.3); Osmolality Calculated 299 mOsm/kg (285-295); Phosphorus 3.8 mg/dL (2.5-4.5); Potassium 3.5 mmol/L (3.5-5.1); Sodium 145 mmol/L (136-145)
[2020-04-08] MEDS: potassium chloride ER 20 mEq Tablet PO ×2 (09:05→17:28)
[2020-04-08] MEDS: ferrous sulfate EC 325 mg Tablet PO ×3 (09:06→20:21)
[2020-04-08] MEDS: lisinopril 5 mg Tablet PO (09:06)
[2020-04-08] MEDS: nitroglycerin 1 gm/inch oint Pkt 0.5 INCH TOPICAL ×3 (09:06→20:22)
[2020-04-08] MEDS: pantoprazole DR 40 mg Tablet PO (09:06)
--- NOTE | 2020-04-08 09:22 | PC.CHAP ---
Pastoral Care Encounter/Spiritual Assessment Type of Contact [] Declined punch press operator visit [] Patient/Family/Request visit [] Outpatient visit [] Follow-up visit [] Physician referral [] Code/Alert [x] Routine visit [] Staff referral [] Actively dying [] Patient sleeping [] Family support [] [] Out of room [] Palliative care [] [] Receiving care in room [] Pre-surgical visit [] Trauma [] Long length of stay [] ICU visit [x] Other: restricted area Relational/Emotional Strength [] Patient feels connected with others/family/visitors/staff [] Distress [] Loneliness/isolation [] Abandonment Spirituality of Patient [] Person of Maria De Jesus [] Attends Scientology of their Maria De Jesus [] Believes in Prayer [] Reads Bible or Baptism materials [] There are Spiritual issues to be addressed Project Facilitator Interventions [x] Prayer [] Active listening [] Non-anxious presence [] Spiritual/emotional support [] Crisis/trauma care [] Spiritual counseling [] Bereavement support [] Provided bereavement packet [] Provided Bible/devotional materials [] Provided toy/stuffed animal, coloring book to patient or family member [] Provided Communion [] Anointing/[place] [] Salvation [x] Completed spiritual assessment [] Other: Impact on Illness or Injury [] Angry [] Fearful [] Anxious [] Often cries [] Exhaustion [] Unable to work [] Unable to attend anabaptism [] Unable to walk/stand [] Unable to read [] Unable to drive [] Unable to eat/drink [] Unable to sleep [] Unable to be with family [] Patient intubated [] Other: Summary Time spent with patient
--- NOTE | 2020-04-08 11:41 | PM.PN ---
Subjective Subjective: Interval history: Patient was seen and examined this morning.She was seen sitting comfortably in chair. Her SOB has improved.She is saturating well on 4ls oxygen via [place]. Her other vitals and labs have been reviewed. Medications: Reviewed: Yes Vitals/I&O/Wt Last Vital Signs Temp 96.9 F L 04/08/20 08:00 Pulse 80 04/08/20 08:00 Resp 20 H 04/08/20 08:00 BP 127/79 04/08/20 08:00 Pulse Ox 95 04/08/20 08:00 04/07/20 04/08/20 04/08/20 22:59 06:59 14:59 Intake Total 50 / 50 100 / 150 240 / 240 Balance 50 / 50 100 / 150 240 / 240 Weight last 48 hrs Weight 74.843 kg Physical Exam Const: COMMON NORMALS: patient oriented x3 HENMT: COMMON NORMALS: normocephalic and atraumatic HEAD & SCALP: normocephalic and atraumatic Resp: EFFORT & INSPECTION: Yes symmetric chest movement OTHER: Rt basal crackles present.No wheezing, no Ronchii Cardio: COMMON NORMALS: regular rate, regular rhythm, S1 normal heart sound present, S2 normal heart sound present, No gallops present (Cardio), No murmurs present (Cardio), No rub (Cardio) and Peripheral pulses 2+ throughout RATE: regular rate RHYTHM: regular rhythm HEART SOUNDS: S1 normal heart sound present and S2 normal heart sound present PERIPHERAL PULSES: Peripheral pulses 2+ throughout GI: COMMON NORMALS: Normal to inspection, nondistended, normoactive bowel sounds present, Soft to palpation, non-tender, No hepatosplenomegaly present and no masses AUSCULTATION: Yes normoactive bowel sounds PALPATION: Yes Soft to palpation and Yes No hepatosplenomegaly present RECTAL EXAM: deferred Extremity: COMMON NORMALS: no pedal edema NARRATIVE EXTREMITY EXAM: 2 + B/L Pitting Edema Present in both lower extremity. Neuro: COMMON NORMALS: patient oriented x3 Urinary Catheter Management^: Chaudhari Latex: Cath Placed During This Visit: yes Urinary Catheter Date of Insertion: 04/08/20 Urinary Catheter Time of Insertion: 09:45 Data : 04/07/20 18:15 04/08/20 07:24 A&P Assessment and plan (1) CHF (congestive heart failure): Ac on Chronic Decompensated HFpEF: I.V Lasix 40 mg q12 h Daily Carvedilol 3.125 mg q12 h daily Lisinopril 5 mg po daily Pottasium 20 mg PO BID I/O Charting Daily weight Keep Mg > 2 and K> 4 2D Echo: ( 04/08 ) : Normal LV Cavity Size, LVEF : 60 % , Mild MR and TR Status: Chronic Qualifiers: Heart failure chronicity: acute on chronic Heart failure type: unspecified Qualified Code(s): I50.9 - Heart failure, unspecified (2) Pleural effusion on right: Moderate Rt Pleural Effusion :Likely from Decompensated HFpEF. Currently NO need for Thoracentesis: I am hopeful that it will resolve with I.V diuresis Monitor Xray chest Status: Acute (3) Atrial fibrillation: Currently rate controlled. Continue: Carvedilol 3.125 mg q12 h daily On ELiquis Status: Chronic Qualifiers: Atrial fibrillation type: unspecified chronic Qualified Code(s): I48.20 - Chronic atrial fibrillation, unspecified (4) Dementia: Status: Chronic Qualifiers: Dementia type: unspecified type Dementia behavioral disturbance: without behavioral disturbance Qualified Code(s): F03.90 - Unspecified dementia without behavioral disturbance (5) Hypertension: Status: Chronic Qualifiers: Hypertension type: unspecified Qualified Code(s): I10 - Essential (primary) hypertension (6) Pulmonary hypertension: Status: Acute Additional A&P Information DVT PPX: SCDS Code Status :Full code Disposition :Home Attestations Medical Necessity Statement*: Patient needs to be in hospital for the management of Decompensated HFpEF. Coding Level of Care Code Acute Tile Inspector for [facility] Fwd Diagnoses CHF (congestive heart failure) I50.9 Heart failure chronicity: acute on chronic Heart failure type: unspecified Pleural effusion on right J90 Atrial fibrillation I48.20 Atrial fibrillation type: unspecified chronic Dementia F03.90 Dementia type: unspecified type Dementia behavioral disturbance: without behavioral disturbance Hypertension I10 Hypertension type: unspecified Pulmonary hypertension I27.20
[2020-04-08] MEDS: lanolin oint 7 gm 1 APPLIC TOPICAL (17:27)
[2020-04-09] VITALS (30 sets, daily range): BP systolic 111–163; BP diastolic 63–113; PULSE 67–143; RESP 8–32; TEMP 36.4–37; O2SAT 92–99
[2020-04-09] MEDS: nitroglycerin 1 gm/inch oint Pkt 0.5 INCH TOPICAL ×4 (02:43→20:13)
[2020-04-09] MEDS: carvedilol 3.125 mg Tablet PO (05:14)
--- NOTE | 2020-04-09 05:15 | PC.NURSE ---
pt is anxious, says she doesn't feel good, denies pain or nausea, HR in 120s, notified Dr Marie who gave order to give 0645 coreg dose early
[2020-04-09 05:43] LABS: Basophils # 0.1 10^3/uL (0.0-0.1); Basophils % 0.7 %; Eosinophils # 0.2 10^3/uL (0.0-0.8); Eosinophils % 2.8 %; Hematocrit 31.9 % (37.0-47.0); Hemoglobin 8.7 g/dL (11.5-15.3); Lymphocytes # 1.4 10^3/uL (0.8-4.8); Lymphocytes % 18.4 %; Mean Corpuscular HGB Conc 27.3 g/dL (30.0-36.0); Mean Corpuscular Hemoglobin 23.1 pg (28.0-34.0); Mean Corpuscular Volume 84.8 fL (81-99); Mean Platelet Volume 10.8 fL (7.4-10.4); Monocytes # 0.6 10^3/uL (0.2-0.9); Monocytes % 8.2 %; Neutrophils # 5.27 10^3/uL (1.8-7.7); Neutrophils % 69.8 %; Nucleated Red Blood Cells % 0 %; Platelet Count 254 10^3/cmm (130-400); Red Blood Count 3.76 10^6/uL (4.1-5.3); Red Cell Distribution Width 28.6 % (12.1-15.1); White Blood Count 7.6 10^3/uL (4.0-10.0)
[2020-04-09 05:58] LABS: Blood Urea Nitrogen 14 mg/dL (8-23); Calcium 9.3 mg/dL (8.5-10.5); Carbon Dioxide 36 mmol/L (22-29); Chloride 102 mmol/L (98-107); Glucose 114 mg/dL (65-115); Osmolality Calculated 301 mOsm/kg (285-295); Sodium 145 mmol/L (136-145)
[2020-04-09 05:59] LABS: Magnesium 2.1 mg/dL (1.7-2.3)
[2020-04-09] MEDS: FUROsemide 10 mg/mL SDV 4mL 40 MG IVP ×2 (06:02→18:07)
[2020-04-09] MEDS: potassium chloride ER 20 mEq Tablet PO ×2 (08:45→18:06)
[2020-04-09] MEDS: lisinopril 5 mg Tablet PO (08:46)
[2020-04-09] MEDS: ferrous sulfate EC 325 mg Tablet PO ×3 (08:46→20:13)
[2020-04-09] MEDS: pantoprazole DR 40 mg Tablet PO (08:46)
--- NOTE | 2020-04-09 10:59 | PM.PN ---
Subjective Subjective: Interval history: Patient was seen and examined today. She was complaining of racing of heart.Her SOB has improved. She deny any chest pain. Tele monitoring shows A.fib with RVR. Her other vitals and labs have been reviewed. Medications: Reviewed: Yes Vitals/I&O/Wt Last Vital Signs Temp 98.4 F 04/09/20 07:43 Pulse 89 04/09/20 09:18 Resp 18 04/09/20 07:43 BP 127/88 04/09/20 07:43 Pulse Ox 96 04/09/20 09:18 04/08/20 04/09/20 04/09/20 22:59 06:59 14:59 Intake Total 240 / 720 150 / 870 0 / 0 Output Total 150 / 825 800 / 1625 1050 / 1050 Balance 90 / -105 -650 / -755 -1050 / -1050 Weight last 48 hrs Weight 74.843 kg Weight 74.843 kg Physical Exam Const: COMMON NORMALS: patient oriented x3 HENMT: COMMON NORMALS: normocephalic and atraumatic HEAD & SCALP: normocephalic and atraumatic Resp: EFFORT & INSPECTION: Yes symmetric chest movement OTHER: Rt basal crackles present.No wheezing, no Ronchii Cardio: COMMON NORMALS: regular rate, regular rhythm, S1 normal heart sound present, S2 normal heart sound present, No gallops present (Cardio), No murmurs present (Cardio), No rub (Cardio) and Peripheral pulses 2+ throughout RATE: regular rate RHYTHM: regular rhythm HEART SOUNDS: S1 normal heart sound present and S2 normal heart sound present PERIPHERAL PULSES: Peripheral pulses 2+ throughout GI: COMMON NORMALS: Normal to inspection, nondistended, normoactive bowel sounds present, Soft to palpation, non-tender, No hepatosplenomegaly present and no masses AUSCULTATION: Yes normoactive bowel sounds PALPATION: Yes Soft to palpation and Yes No hepatosplenomegaly present RECTAL EXAM: deferred Extremity: COMMON NORMALS: no pedal edema NARRATIVE EXTREMITY EXAM: 2 + B/L Pitting Edema Present in both lower extremity. Neuro: COMMON NORMALS: patient oriented x3 Urinary Catheter Management^: Chaudhari Latex: Cath Placed During This Visit: yes, but has since been removed by the nurse Reason for Continuing Indwelling Catheter: Accurate Measurement of Urinary Output in Critically Ill Patients Urinary Catheter Date of Insertion: 04/08/20 Urinary Catheter Time of Insertion: 09:45 Date Urinary Catheter Removed: 04/08/20 Time Urinary Catheter Discontinued: 13:30 Data : 04/09/20 04:44 04/09/20 04:44 A&P Assessment and plan (1) Atrial fibrillation with RVR: Patient was complaining of racing of heart. Tele monitoring shows A.fib with RVR. With Rate ( 110-120s ) She was started on Crdizem Drip. Continue Crvedilol 3.125 mg q12 h daily Eliquis 5 mg q12h Daily 2D Echo : Normal LV Cavity Size, LVEF : 60 % , Mild MR and TR Status: Acute (2) CHF (congestive heart failure): Ac on Chronic Decompensated HFpEF: I.V Lasix 40 mg q12 h Daily Carvedilol 3.125 mg q12 h daily Lisinopril 5 mg po daily Pottasium 20 mg PO BID I/O Charting Daily weight Keep Mg > 2 and K> 4 2D Echo: ( 04/08 ) : Normal LV Cavity Size, LVEF : 60 % , Mild MR and TR Status: Chronic Qualifiers: Heart failure chronicity: acute on chronic Heart failure type: unspecified Qualified Code(s): I50.9 - Heart failure, unspecified (3) Pleural effusion on right: Moderate Rt Pleural Effusion :Likely from Decompensated HFpEF. Currently No need for Thoracentesis: I am hopeful that it will resolve with I.V diuresis Monitor Xray chest Status: Acute (4) Atrial fibrillation: Status: Chronic Qualifiers: Atrial fibrillation type: unspecified chronic Qualified Code(s): I48.20 - Chronic atrial fibrillation, unspecified (5) Dementia: Status: Chronic Qualifiers: Dementia type: unspecified type Dementia behavioral disturbance: without behavioral disturbance Qualified Code(s): F03.90 - Unspecified dementia without behavioral disturbance (6) Hypertension: Status: Chronic Qualifiers: Hypertension type: unspecified Qualified Code(s): I10 - Essential (primary) hypertension (7) Pulmonary hypertension: Status: Acute (8) Anemia: Status: Acute Additional A&P Information Additional Information : Patient is awaiting COVID PCR Test. DVT PPX: Eliquis 5 mg q12 h daily Code Status :Full code Disposition :Home Attestations Medical Necessity Statement*: Patient needs to be in hospital for the management of A.Fib with RVR, Decompensated HF, PUI r/o COVID Coding Level of Care Code Acute Broadcast Meteorologist for [facility] Fwd Diagnoses Atrial fibrillation with RVR I48.91 CHF (congestive heart failure) I50.9 Heart failure chronicity: acute on chronic Heart failure type: unspecified Pleural effusion on right J90 Atrial fibrillation I48.20 Atrial fibrillation type: unspecified chronic Dementia F03.90 Dementia type: unspecified type Dementia behavioral disturbance: without behavioral disturbance Hypertension I10 Hypertension type: unspecified Pulmonary hypertension I27.20 Anemia D64.9
[2020-04-09] MEDS: acetaminophen 325 mg Tablet 650 MG PO (14:25)
--- NOTE | 2020-04-09 17:03 | PC.NURSE ---
Dr. Bah updated on patient condition. HR controlled on 5 mg/ml Cardizem. Verbal order to increase coreg dose to 6.25 mg q 12h, discontinue cardizem gtt 2 hours following dose. RBVO.
[2020-04-09] MEDS: apixaban 5 mg Tablet PO (20:13)
[2020-04-09] MEDS: carvedilol 6.25 mg Tablet PO (20:13)
--- NOTE | 2020-04-09 22:30 | PC.NURSE ---
PT IS RESTING IN BED. PT HAS BEEN UP TO BS X4. PT EDUCATED EACH TIME TO USE CALL LIGHT AND PT DOES NOT. CARDIZEM WAS STOPPED 2 HOURS AFTER GIVING COREG PER ORDERS. WILL CONTINUE TO MONITOR.
[2020-04-10] VITALS (14 sets, daily range): BP systolic 101–136; BP diastolic 53–84; PULSE 74–110; RESP 17–37; TEMP 36.4–36.6; O2SAT 90–99
[2020-04-10] MEDS: nitroglycerin 1 gm/inch oint Pkt 0.5 INCH TOPICAL ×4 (03:06→20:02)
[2020-04-10 05:18] LABS: Basophils # 0.1 10^3/uL (0.0-0.1); Basophils % 0.7 %; Eosinophils # 0.2 10^3/uL (0.0-0.8); Eosinophils % 2.9 %; Hematocrit 31.6 % (37.0-47.0); Hemoglobin 8.6 g/dL (11.5-15.3); Lymphocytes # 1.2 10^3/uL (0.8-4.8); Lymphocytes % 15.8 %; Mean Corpuscular HGB Conc 27.2 g/dL (30.0-36.0); Mean Corpuscular Hemoglobin 23.2 pg (28.0-34.0); Mean Corpuscular Volume 85.2 fL (81-99); Mean Platelet Volume 10.4 fL (7.4-10.4); Monocytes # 0.7 10^3/uL (0.2-0.9); Monocytes % 9.5 %; Neutrophils # 5.35 10^3/uL (1.8-7.7); Neutrophils % 70.8 %; Nucleated Red Blood Cells % 0 %; Platelet Count 220 10^3/cmm (130-400); Red Blood Count 3.71 10^6/uL (4.1-5.3); Red Cell Distribution Width 28.7 % (12.1-15.1); White Blood Count 7.6 10^3/uL (4.0-10.0)
[2020-04-10 05:33] LABS: Magnesium 1.9 mg/dL (1.7-2.3)
[2020-04-10 05:34] LABS: Anion Gap 10.8 (5-19); Blood Urea Nitrogen 14 mg/dL (8-23); Calcium 9.3 mg/dL (8.5-10.5); Carbon Dioxide 35 mmol/L (22-29); Chloride 99 mmol/L (98-107); Glucose 98 mg/dL (65-115); Osmolality Calculated 292 mOsm/kg (285-295); Potassium 3.8 mmol/L (3.5-5.1); Sodium 141 mmol/L (136-145)
[2020-04-10] MEDS: FUROsemide 10 mg/mL SDV 4mL 40 MG IVP (06:20)
--- NOTE | 2020-04-10 06:33 | PC.NURSE ---
PT IS RESTING IN BED. RN GAVE LASIX IVP. WILL CONTINUE TO MONITOR.
[2020-04-10] MEDS: carvedilol 6.25 mg Tablet PO (08:46)
[2020-04-10] MEDS: pantoprazole DR 40 mg Tablet PO (08:46)
[2020-04-10] MEDS: ferrous sulfate EC 325 mg Tablet PO ×3 (08:46→20:02)
[2020-04-10] MEDS: apixaban 5 mg Tablet PO ×2 (08:47→20:02)
[2020-04-10] MEDS: lisinopril 5 mg Tablet PO (08:47)
[2020-04-10] MEDS: potassium chloride ER 20 mEq Tablet PO ×2 (08:47→18:14)
--- NOTE | 2020-04-10 10:25 | DCPLANNER ---
IMM completed on 04/10/20 @ 5140. Copy of rights given to pt.
--- NOTE | 2020-04-10 11:36 | PM.PN ---
Subjective Subjective: Interval history: Patient was seen and examined this morning.Currently she is off cardizem drip and her H/R is better controlled mostly in low 90s . Coreg was increased to 6.25 mg q12 h yesterday from 3.125 mg po q12 h daily. Her SOB has also improved. B/L Lower extremity edema is improving. Her other vitals and labs have been reviewed. Medications: Reviewed: Yes Vitals/I&O/Wt Last Vital Signs Temp 97.6 F 04/10/20 10:58 Pulse 76 04/10/20 10:58 Resp 24 H 04/10/20 10:58 BP 101/53 04/10/20 10:58 Pulse Ox 95 04/10/20 10:58 04/09/20 04/10/20 04/10/20 22:59 06:59 14:59 Intake Total 285.333 / 525.333 360 / 360 Output Total 350 / 1525 150 / 1675 500 / 500 Balance -64.667 / -999.667 -150 / -1149.667 -140 / -140 Weight last 48 hrs Weight 73.527 kg Weight 74.843 kg Physical Exam Const: COMMON NORMALS: patient oriented x3 HENMT: COMMON NORMALS: normocephalic and atraumatic HEAD & SCALP: normocephalic and atraumatic Resp: EFFORT & INSPECTION: Yes symmetric chest movement OTHER: Rt basal crackles improving .No wheezing, no Ronchii. Diminished air entry at rt lower lung base. Cardio: COMMON NORMALS: regular rate, regular rhythm, S1 normal heart sound present, S2 normal heart sound present, No gallops present (Cardio), No murmurs present (Cardio), No rub (Cardio) and Peripheral pulses 2+ throughout RATE: regular rate RHYTHM: regular rhythm HEART SOUNDS: S1 normal heart sound present and S2 normal heart sound present PERIPHERAL PULSES: Peripheral pulses 2+ throughout GI: COMMON NORMALS: Normal to inspection, nondistended, normoactive bowel sounds present, Soft to palpation, non-tender, No hepatosplenomegaly present and no masses AUSCULTATION: Yes normoactive bowel sounds PALPATION: Yes Soft to palpation and Yes No hepatosplenomegaly present RECTAL EXAM: deferred Extremity: COMMON NORMALS: no pedal edema NARRATIVE EXTREMITY EXAM: 1 + B/L Pitting Edema Present in both lower extremity. Neuro: COMMON NORMALS: patient oriented x3 Urinary Catheter Management^: Chaudhari Latex: Cath Placed During This Visit: yes, but has since been removed by the nurse Reason for Continuing Indwelling Catheter: Accurate Measurement of Urinary Output in Critically Ill Patients Urinary Catheter Date of Insertion: 04/08/20 Urinary Catheter Time of Insertion: 09:45 Date Urinary Catheter Removed: 04/08/20 Time Urinary Catheter Discontinued: 13:30 Data : 04/10/20 04:40 04/10/20 04:40 A&P Assessment and plan (1) Atrial fibrillation with RVR: Patient was complaining of racing of heart. Tele monitoring shows A.fib with RVR. With Rate ( 110-120s ) Initiaaly on Crdizem Drip. Initially on Carvedilol 3.125 mg q12 h daily increased to 6.25 mg q12 h on 04/10 Eliquis 5 mg q12h Daily 2D Echo : Normal LV Cavity Size, LVEF : 60 % , Mild MR and TR Status: Acute (2) CHF (congestive heart failure): Ac on Chronic Decompensated HFpEF: Initially on I.V Lasix 40 mg q12 h Daily reduced to I.V Lasix 40 mg daily on 04/10 Initially on Carvedilol 3.125 mg q12 h daily increased to 6.25 mg q12 h on 04/10 Lisinopril 5 mg po daily Pottasium 20 mg PO BID I/O Charting Daily weight Keep Mg > 2 and K> 4 2D Echo: ( 04/08 ) : Normal LV Cavity Size, LVEF : 60 % , Mild MR and TR Status: Chronic Qualifiers: Heart failure chronicity: acute on chronic Heart failure type: unspecified Qualified Code(s): I50.9 - Heart failure, unspecified (3) Pleural effusion on right: Moderate Rt Pleural Effusion :Likely from Decompensated HFpEF. Currently No need for Thoracentesis: I am hopeful that it will resolve with I.V diuresis Monitor Xray chest Status: Acute (4) Dementia: Status: Chronic Qualifiers: Dementia type: unspecified type Dementia behavioral disturbance: without behavioral disturbance Qualified Code(s): F03.90 - Unspecified dementia without behavioral disturbance (5) Hypertension: Status: Chronic Qualifiers: Hypertension type: unspecified Qualified Code(s): I10 - Essential (primary) hypertension (6) Pulmonary hypertension: Status: Acute (7) Anemia: Status: Acute Additional A&P Information COVID PCR Test. Negative DVT PPX: Eliquis 5 mg q12 h daily Code Status :Full code Disposition :Home Attestations Medical Necessity Statement*: Patient needs to be in hospital for the management of Decompensated H/F, A.Fib. Coding Level of Care Code Acute Wallpaper Hanger Helper for g Fwd Diagnoses Atrial fibrillation with RVR I48.91 CHF (congestive heart failure) I50.9 Heart failure chronicity: acute on chronic Heart failure type: unspecified Pleural effusion on right J90 Dementia F03.90 Dementia type: unspecified type Dementia behavioral disturbance: without behavioral disturbance Hypertension I10 Hypertension type: unspecified Pulmonary hypertension I27.20 Anemia D64.9
[2020-04-10 14:19] LABS: Coronavirus Test Green County Not Detected
[2020-04-10] MEDS: digoxin 250 mcg/ml INJ 2 mL IVP (17:15)
[2020-04-10] MEDS: carvedilol 12.5 mg Tablet PO (18:14)
--- NOTE | 2020-04-10 20:38 | PC.NURSE ---
Spoke with Kobi COLE about this patient's work of breathing. Pt has notable pursed lip breathing. She is on O2 at 3 liters and has a spO2 saturation of 96. Kobi COLE notified Dr. Marie hospitalist publicity person requesting orders see RT note/orders
[2020-04-10] MEDS: ipratropium-albuterol 3 mL Neb INHALATION (20:43)
[2020-04-11] VITALS (8 sets, daily range): BP systolic 117–151; BP diastolic 58–89; PULSE 80–95; RESP 18–22; TEMP 36.2–36.6; O2SAT 90–96
[2020-04-11] MEDS: nitroglycerin 1 gm/inch oint Pkt 0.5 INCH TOPICAL ×2 (02:46→08:35)
[2020-04-11 05:06] LABS: Basophils # 0.1 10^3/uL (0.0-0.1); Basophils % 0.8 %; Eosinophils # 0.2 10^3/uL (0.0-0.8); Eosinophils % 3.7 %; Hematocrit 32.1 % (37.0-47.0); Hemoglobin 8.8 g/dL (11.5-15.3); Lymphocytes # 1.3 10^3/uL (0.8-4.8); Lymphocytes % 22.7 %; Mean Corpuscular HGB Conc 27.4 g/dL (30.0-36.0); Mean Corpuscular Hemoglobin 23.4 pg (28.0-34.0); Mean Corpuscular Volume 85.4 fL (81-99); Mean Platelet Volume 11.1 fL (7.4-10.4); Monocytes # 0.6 10^3/uL (0.2-0.9); Monocytes % 9.8 %; Neutrophils # 3.69 10^3/uL (1.8-7.7); Neutrophils % 62.7 %; Nucleated Red Blood Cells % 0 %; Platelet Count 236 10^3/cmm (130-400); Red Blood Count 3.76 10^6/uL (4.1-5.3); Red Cell Distribution Width 28.6 % (12.1-15.1); White Blood Count 5.9 10^3/uL (4.0-10.0)
[2020-04-11 05:26] LABS: Magnesium 2.1 mg/dL (1.7-2.3)
[2020-04-11 05:27] LABS: Anion Gap 10.8 (5-19); Blood Urea Nitrogen 16 mg/dL (8-23); Calcium 9.5 mg/dL (8.5-10.5); Carbon Dioxide 35 mmol/L (22-29); Chloride 102 mmol/L (98-107); Glucose 92 mg/dL (65-115); Osmolality Calculated 299 mOsm/kg (285-295); Potassium 3.8 mmol/L (3.5-5.1); Sodium 144 mmol/L (136-145)
[2020-04-11] MEDS: potassium chloride ER 20 mEq Tablet PO (08:34)
[2020-04-11] MEDS: carvedilol 12.5 mg Tablet PO (08:34)
[2020-04-11] MEDS: pantoprazole DR 40 mg Tablet PO (08:34)
[2020-04-11] MEDS: FUROsemide 10 mg/mL SDV 4mL 40 MG IVP (08:35)
[2020-04-11] MEDS: ferrous sulfate EC 325 mg Tablet PO (08:35)
[2020-04-11] MEDS: apixaban 5 mg Tablet PO (08:35)
[2020-04-11] MEDS: lisinopril 5 mg Tablet PO (08:35)
--- NOTE | 2020-04-11 11:40 | P.DS_ITS ---
Discharge Providers Date of Admission: 04/07/20 20:47 Date of Discharge: April 11, 2020 Attending Provider at Admission: Diana Buenrostro MD Attending Provider at Discharge: Kole Bah MD Diagnoses at Discharge Discharge Diagnosis (1) Atrial fibrillation with RVR: Status: Resolved (2) CHF (congestive heart failure): Status: Chronic Qualifiers: Heart failure chronicity: acute on chronic Heart failure type: unspecified Qualified Code(s): I50.9 - Heart failure, unspecified (3) Pleural effusion on right: Status: Chronic (4) Dementia: Status: Chronic Qualifiers: Dementia behavioral disturbance: without behavioral disturbance Dementia type: unspecified type Qualified Code(s): F03.90 - Unspecified dementia without behavioral disturbance (5) Hypertension: Status: Chronic Qualifiers: Hypertension type: unspecified Qualified Code(s): I10 - Essential (primary) hypertension (6) Anemia: Status: Chronic Reason for Visit Reason for Visit: crackling in lower lobe Hospital Course Hospital Course 80-year-old female with past medical history of hypertension, heart failure with reduced recent fraction, atrial fibrillation on chronic anticoagulation with Eliquis, dementia, iron deficiency anemia, COPD on 3 L home oxygen as needed.Came in with chief complaint of worsening shortness of breath going on for last several days prior to the admission.She was admitted for the management of CHF exacerbation. She was kept on IV Lasix and she responded well to IV Diuresis,her shortness of breath had resolved at the time of discharge, she was admitted with 2+ bilateral lower extremity swelling, at the time of discharge the swelling has gone significantly down. Her daily weight was monitored as daily intake and output charting was done. She was discharged on p.o. Lasix 40 twice daily as well as oral potassium. On admission CTAgio chest was also done which failed to show any PE, it showed atelectasis of the majority of the right lower lobe and the right middle lobe with a moderate right pleural effusion.No pneumothorax. Trace left pleural effusion. Cardiomegaly with focal enlargement of the right atrium. No pericardial effusion. Multiple coronary calcifications. Hospital course was also complicated by atrial flutter / fibrillation with RVR, she was initially started on Cardizem drip, which was later discontinued, she was continued on carvedilol as well as received 1 dose of digoxin 250 mcg IV. At the time of discharge the heart rate was well controlled, though she continued to remain in A. fib. She was discharged on her home regimen of carvedilol 3.125 mg every 12 hours daily as well as metoprolol tartrate 25 mg every 12 hours daily. She was continued on Eliquis for anticoagulation. Right pleural effusion thoracentesis was not attempted. I am of the opinion that she will respond to continue diuresis. Her chronic iron deficient anemia was stable, she was continued on ferrous sulfate 325 mg p.o. 3 times daily. She was discharged home on 3 Ls of oxygen for her chronic hypoxia secondary to underlying COPD secondary to longstanding smoking. Patient responded well to the above medical management, she was discharged in stable condition to home.She will continue to follow her primary care physician as an outpatient. Physical Exam 2 Const: COMMON NORMALS: patient oriented x3 HENMT: COMMON NORMALS: normocephalic and atraumatic HEAD & SCALP: normocephalic and atraumatic Resp: EFFORT & INSPECTION: Yes symmetric chest movement OTHER: Rt basal crackles improving .No wheezing, no Ronchii. Diminished air entry at rt lower lung base. Cardio: COMMON NORMALS: regular rate, regular rhythm, S1 normal heart sound present, S2 normal heart sound present, No gallops present (Cardio), No murmurs present (Cardio), No rub (Cardio) and Peripheral pulses 2+ throughout RATE: regular rate RHYTHM: regular rhythm HEART SOUNDS: S1 normal heart sound present and S2 normal heart sound present PERIPHERAL PULSES: Peripheral pulses 2+ throughout GI: COMMON NORMALS: Normal to inspection, nondistended, normoactive bowel sounds present, Soft to palpation, non-tender, No hepatosplenomegaly present and no masses AUSCULTATION: Yes normoactive bowel sounds PALPATION: Yes Soft to palpation and Yes No hepatosplenomegaly present RECTAL EXAM: deferred Extremity: COMMON NORMALS: no pedal edema NARRATIVE EXTREMITY EXAM: 1 + B/L Pitting Edema Present in both lower extremity. Neuro: COMMON NORMALS: patient oriented x3 Urinary Catheter Management^: Chaudhari Latex: Cath Placed During This Visit: yes, but has since been removed by the nurse Reason for Continuing Indwelling Catheter: Accurate Measurement of Urinary Output in Critically Ill Patients Urinary Catheter Date of Insertion: 04/08/20 Urinary Catheter Time of Insertion: 09:45 Date Urinary Catheter Removed: 04/08/20 Time Urinary Catheter Discontinued: 13:30 Discharge Data Data Completed and Pending: Completed Studies During Hospitalization Category Date Time Status CT angio chest PE protcl [id number] Stat Cat Scan 04/07/20 18:32 Completed XR chest 1V yuly ble [id number] Stat Exams 04/07/20 17:27 Completed CV echo complete* [id number] Routine Ultrasound 04/08/20 06:50 Completed Labs from last 24 hours 04/11/20 04/11/20 04/11/20 04:15 04:15 04:15 WBC 5.9 RBC 3.76 L Hgb 8.8 L Hct 32.1 L MCV 85.4 MCH 23.4 L MCHC 27.4 L RDW 28.6 H Plt Count 236 MPV 11.1 H Neut % (Auto) 62.7 Lymph % (Auto) 22.7 [place] % (Auto) 9.8 Eos % (Auto) 3.7 Baso % (Auto) 0.8 Neut # (Auto) 3.69 Lymph # (Auto) 1.3 [place] # (Auto) 0.6 Eos # (Auto) 0.2 Baso # (Auto) 0.1 Nucleated RBC % (a uto) 0 Nucleated RBCs # 0.0 Sodium 144 Potassium 3.8 Chloride 102 Carbon Dioxide 35 H Anion Gap 10.8 BUN 16 Creatinine 0.6 GFR Calculation Not Reportable Glucose 92 Calculated Osmolal ity 299 H Calcium 9.5 Magnesium 2.1 Nasal/Oral COVID-1 9 PCR 04/09/20 13:35 WBC RBC Hgb Hct MCV MCH MCHC RDW Plt Count MPV Neut % (Auto) Lymph % (Auto) [place] % (Auto) Eos % (Auto) Baso % (Auto) Neut # (Auto) Lymph # (Auto) [place] # (Auto) Eos # (Auto) Baso # (Auto) Nucleated RBC % (a uto) Nucleated RBCs # Sodium Potassium Chloride Carbon Dioxide Anion Gap BUN Creatinine GFR Calculation Glucose Calculated Osmolal ity Calcium Magnesium Nasal/Oral COVID-1 9 PCR Not detected Vitals: Last Vital Signs Temp 97.2 F L 04/11/20 10:52 Pulse 83 04/11/20 11:38 Resp 18 04/11/20 11:38 BP 117/58 04/11/20 10:52 Pulse Ox 94 04/11/20 11:38 Discharge Plan Discharge Patient Disposition: Home Condition: Stable Prescriptions: New Klor-Con 20 mEq packet 20 meq PO DAILY Qty: 30 RF: 0 Continued Lasix 40 mg Tablet 40 mg PO BID RF: 0 Coreg 3.125 mg Tablet 3.125 mg PO BID RF: 0 pantoprazole 40 mg Tablet,Delayed Release (Dr/Ec) 40 mg PO DAILY RF: 0 Iron (ferrous sulfate) 325 mg (65 mg iron) Tablet 325 mg PO TID RF: 0 lisinopril 5 mg Tablet 5 mg PO DAILY RF: 0 metoprolol tartrate 25 mg Tablet 25 mg PO BID RF: 0 apixaban 5 mg Tablet 5 mg PO BID RF: 0 Discharge Orders: Discharge Order (Routine); Ordered 04/11/20 Ordered By: Kole Bah Referrals: Antonia Arroyo NP [Nurse Practitioner] - 04/17/20 9:40 am Discharge Diet: Low Salt Discharge Activity: Resume usual activity Discharge Attestations Time Spent in Discharge Care*: greater than 30 min Specific Discharge Activities: educating patient, educating and/or supporting family/caregiver, discussing with pcp/other providers, discussing with case tomás barr/social workers/dc planners, documenting/other paperwork and evaluating patient/reviewing data Status at Discharge: Cognitive status at discharge: cognitively intact , Behavioral status at discharge: cooperative , Functional status at discharge: independent ambulation Overall status at discharge: patient is back to baseline Quality Metrics Clinical Quality Measures During this hospital stay, did patient experience: None Coding Level of Care Code Acute Identification Printing Machine Setter for [facility] Fwd Exam Detailed Diagnoses Atrial fibrillation with RVR I48.91 CHF (congestive heart failure) I50.9 Heart failure chronicity: acute on chronic Heart failure type: unspecified Pleural effusion on right J90 Dementia F03.90 Dementia behavioral disturbance: without behavioral disturbance Dementia type: unspecified type Hypertension I10 Hypertension type: unspecified Anemia D64.9
--- NOTE | 2020-04-11 18:40 | PC.NURSE ---
Pt discharged home. Pts IV removed no redness or swelling noted. Pt discharge instructions given along with prescriptions and follow up appointment. Pt had no c/o pain or discomfrt at the time of discharge.
== END 2020-04-11 17:41 | disposition home or self-care (01) | DRG 292 ==
LOC: ER 16:53 → CSU 21:01
PROVIDERS: Admitting Provider Hospitalist; Emergency Provider Family Medicine; Visit Provider Internal Medicine
DX: I11.0 Hypertensive heart disease with heart failure (principal); I48.20 Chronic atrial fibrillation, unspecified; I48.92 Unspecified atrial flutter; I50.33 Acute on chronic diastolic (congestive) heart failure; F03.90 Unspecified dementia, unspecified severity, without behavioral disturbance, psychotic disturbance, mood disturbance, and anxiety; Z79.01 Long term (current) use of anticoagulants; D50.9 Iron deficiency anemia, unspecified; I27.20 Pulmonary hypertension, unspecified; Z99.81 Dependence on supplemental oxygen; I25.10 Atherosclerotic heart disease of native coronary artery without angina pectoris; Z87.891 Personal history of nicotine dependence
CPT/HCPCS: 36415; 36600; 51702; 71045; 71275; 80048; 80053; 82803; 83605; 83735; 83880; 84100; 84145; 84484; 85025; 85378; 85610; 85730; 86140; 87426; 87635; 87804; 93005; 93306; 94640; 94664; 96365; 96375; 99285; J0696; J1160; J1940; J3490; J3535; Q9967

== ENCOUNTER → 2021-05-07 09:59 | Outpatient (BNVA) | payer MEDICARE, MEDICAID, SELFPAY | PROVIDERS: Visit Provider Nurse Practitioner Family | DX: R41.82 Altered mental status, unspecified (principal) | CPT/HCPCS: 81000 ==

== ENCOUNTER → 2021-07-25 15:57 | Outpatient (BNVA) | payer MEDICARE, MEDICAID, SELFPAY | PROVIDERS: Visit Provider Nurse Practitioner Family | DX: R41.82 Altered mental status, unspecified (principal) | CPT/HCPCS: 81000 ==

== ENCOUNTER → 2022-04-20 15:14 | Outpatient (BNVA) | payer MEDICARE, MEDICAID, SELFPAY | PROVIDERS: Visit Provider Family Medicine | DX: R41.0 Disorientation, unspecified (principal) | CPT/HCPCS: 81003; 87086 ==

== ENCOUNTER → 2022-12-08 15:33 | Outpatient (BNVA) | payer MEDICARE, MEDICAID, SELFPAY | PROVIDERS: PCP Family Medicine; Visit Provider Nurse Practitioner Family | DX: R30.9 Painful micturition, unspecified (principal); R41.82 Altered mental status, unspecified; R30.0 Dysuria | CPT/HCPCS: 81000; 87086 ==

== ENCOUNTER → 2024-10-13 09:48 | Outpatient (BNVA) | payer MEDICARE, SELFPAY | PROVIDERS: PCP Family Medicine; Visit Provider Nurse Practitioner Family | DX: N39.0 Urinary tract infection, site not specified (principal) | CPT/HCPCS: 81000; 87086 ==

== ENCOUNTER → 2024-10-31 09:45 | Outpatient (BNVA) | payer MEDICARE, SELFPAY | PROVIDERS: PCP Family Medicine; Visit Provider Nurse Practitioner Family | DX: I10 Essential (primary) hypertension (principal); N39.0 Urinary tract infection, site not specified | CPT/HCPCS: 81000; 87086 ==